=== PATIENT | male | born 1980 | race Caucasian/White ===

== ENCOUNTER 2018-07-19 09:49 | Day surgery (SDC) | payer BC ==
[~2018-07-19] VITALS: Ht 180.3 cm; Wt 106.6 kg
[~2018-07-19 09:49] MED LIST: ATOR40TA75; FLUTISP; LEVOTAB10 PO; OMEP-221
[2018-07-19] MEDS ORDERED: LR 1,000 ML IV ONE (11:00)
[2018-07-19] MEDS ORDERED: PROPOFOL 200 MG/20 ML VIAL As Ordered ONE (11:15)
[2018-07-19] MEDS ORDERED: ROCURONIUM BROMIDE 50 MG/5 ML VIAL As Ordered ONE (11:15)
[2018-07-19] MEDS ORDERED: fentaNYL 100 MCG/2 ML INJECTION (J3010) As Ordered ONE (11:15)
[2018-07-19] MEDS ORDERED: LIDOCAINE 2% INJ 100 MG/5 ML SDV (FOR ANES.) As Ordered ONE (11:15)
[2018-07-19] MEDS ORDERED: METOCLOPRAMIDE INJ 10MG/2ML VIAL (J2765) As Ordered ONE (11:15)
[2018-07-19] MEDS ORDERED: MIDAZOLAM INJ 2 MG/2 ML VIAL (J2250) As Ordered ONE (11:15)
[2018-07-19] MEDS ORDERED: dexameTHASONE 4 MG/ML 1ML VIAL (J1100) As Ordered ONE (11:15)
[2018-07-19] MEDS ORDERED: ONDANSETRON 4MG/2ML VIAL (J2405) As Ordered ONE (11:15)
[2018-07-19] MEDS ORDERED: CIPRODEX OTIC SUSP 7.5ML As Ordered ONE (12:19)
[2018-07-19] MEDS ORDERED: METHYLENE BLUE 0.5% (5MG/ML) 10 ML AMP (PROVAYBLUE)(Q9968 PER 1MG) As Ordered ONE (12:20)
[2018-07-19] MEDS ORDERED: OXYMETAZOLINE NASAL SPRAY (AFRIN) As Ordered ONE (12:20)
[2018-07-19] MEDS ORDERED: LIDOCAINE W/EPINEPHRINE 1% 20ML VIAL As Ordered ONE (12:20)
[2018-07-19] MEDS ORDERED: ONDANSETRON 4MG/2ML VIAL (J2405) IV PRN (14:00)
[2018-07-19] MEDS ORDERED: PERCOCET 5MG/325MG TAB PO PRN (14:00)
[2018-07-19] MEDS ORDERED: fentaNYL 100 MCG/2 ML INJECTION (J3010) IV PRN (14:00)
[2018-07-19] MEDS ORDERED: LR 1,000 ML IV SCH (14:00)
[2018-07-19] MEDS ORDERED: HYDROMORPHONE HCL 0.5 MG/ 0.5 ML SYRINGE (J1170 PER 1) IV PRN (14:00)
[2018-07-19 15:30] VITALS: BP 143/92
--- NOTE | 2018-07-19 15:35 | RO ---
DATE OF PROCEDURE: 07/19/2018 PREOPERATIVE DIAGNOSES: Significant bilateral eustachian tube dysfunction with failure of previous myringotomies. POSTPROCEDURE DIAGNOSES: Significant bilateral eustachian tube dysfunction with failure of previous myringotomies. OPERATION PERFORMED: Bilateral eustachian tube balloon dilation with the AERA device from [id number] under rigid nasal endoscopy and guidance. SURGEON: Josue Perez MD ANESTHESIA: General endotracheal tube by Dr. Robbins and [employer]. INDICATIONS FOR PROCEDURE: Eustachian tube dysfunction and failed multiple previous tympanoplasties by other physicians. INDICATIONS FOR PROCEDURE: As mentioned previously procedure. DESCRIPTION OF PROCEDURE: With the patient in supine position after being induced and prepped and draped in the usual fashion, the nasal cavity was decongested with Afrin and the AERA balloon Accelerant device was utilized initially to attempt to cannulate the left eustachian tube. The torus bursa was very edematous and was identified and was difficult to pass after multiple attempts. After a certain amount of time without putting too much added force on this, we went to the opposite side, which showed a more problematic torus tubarius slightly lower and more slit-like angle to get in to the torus tubarius was a little bit flatter as well; however, this was found eventually with gentle probing and went in very easily without any bleeding. This was dilated 12 cm for 2 minutes and then released. This was then insinuated to the yellow marker. Again, was very safe and no problems. There was no bleeding. Attention then was drawn to removing that and it was completely observed and there was no bleeding. I went back to left side where again there was a more narrow area. The opening appeared to be a little bit more inferiorly than normal in the torus tubarius region. This was cannulated without trauma and went in smoothly. The patient tolerated this well. The balloon was dilated up to 12 cm of H20 and held for 2 minutes and then released. Again, the area was inspected and there was quite a bit of edema, which had been previously, but no significant issues otherwise. There were no problems. No complications. Estimated blood loss was trace.
== END 2018-07-19 15:41 | disposition home or self-care (01) ==
LOC: M SDC 09:49
PROVIDERS: ATTEND Otolaryngology
DX: H69.83 Other specified disorders of Eustachian tube, bilateral (principal); E78.5 Hyperlipidemia, unspecified; K21.9 Gastro-esophageal reflux disease without esophagitis; Z79.899 Other long term (current) drug therapy
CPT/HCPCS: 69799; J1100; J2250; J2405; J2765; J3010; Q9968

== ENCOUNTER → 2022-03-29 | Outpatient (REF) | payer BC ==
[~2022-03-29] MED LIST changes: -OMEP-221; +OMEP40CA5
== END ==
LOC: M LAB REF 14:37
PROVIDERS: ATTEND Otolaryngology
DX: H60.312 Diffuse otitis externa, left ear (principal)